=== PATIENT | female | born 1970 | race Caucasian/White ===

== ENCOUNTER 2022-02-15 18:14 | Inpatient (IN) | payer BC ==
[~2022-02-15] VITALS: Ht 157.5 cm; Wt 87.5 kg
[2022-02-15 18:28] VITALS: BP 135/67
--- NOTE | 2022-02-15 18:44 | NUR ---
PT AMB TO BED 9.
[2022-02-15] MEDS ORDERED: NACL 0.9% 1,000 ML IV ONE (19:55)
--- NOTE | 2022-02-15 20:00 | NUR ---
51 Y/O FEMALE BIBS FROM HOME, C/O FLANK PAIN X3 DAYS. PTHAS BEEN IN CONTACT WITH HER PCP AND IS ON ABX FOR HER S/S. PT IS COMPLAINING THAT HER SYMPTOMS ARE PERSISTING. PT IS COMPLAINING OF FEVERS ( HIGH 102 AT HOME), N/V/D, BODY ACHES, BRIGHT, DIAPHORESIS AND URINATING LESS. PT STATES SHE IS TAKING IBUPROFEN AND TYLENOL. HX: UTI NKA DENIES MEDS SX: HYSTERECTOMY
--- NOTE | 2022-02-15 20:03 | NUR ---
CARTON COUNTER FEEDER AT BEDSIDE
[2022-02-15 20:20] LABS: BASOPHILS # (AUTO) 0.1 K/uL (0.00-0.22); BASOPHILS % (AUTO) 0.9 % (0.0-2.0); EOSINOPHILS # (AUTO) 0.6 K/uL (0-0.4); EOSINOPHILS % (AUTO) 9.3 % (0.0-4.0); HEMATOCRIT 40.2 % (36-48); HEMOGLOBIN 13.6 g/dL (12.0-16.0); LYMPHOCYTES # (AUTO) 1.5 K/uL (2.5-16.5); LYMPHOCYTES % (AUTO) 25.1 % (20.5-51.1); MEAN CORPUSCULAR HEMOGLOBIN 29 pg (27-31); MEAN CORPUSCULAR HGB CONC 34 g/dL (33-37); MEAN CORPUSCULAR VOLUME 85.8 fL (80-94); MONOCYTES # (AUTO) 0.7 K/uL (0.8-1.0); NEUTROPHILS # (AUTO) 3.2 K/uL (1.8-7.7); NEUTROPHILS % (AUTO) 52.7 % (42.2-75.2); PLATELET COUNT (AUTO) 222 K/uL (140-450); RED BLOOD CELL COUNT(AUTO) 4.69 MIL/uL (4.20-5.40); RED CELL DISTRIBUTION WIDTH 13.8 % (11.6-13.7)
--- NOTE | 2022-02-15 20:28 | NUR ---
PT TO CT
[2022-02-15 20:34] LABS: ALBUMIN 3.3 g/dL (3.4-5.0); ANION GAP 14.3 (8-16); CARBON DIOXIDE 23.5 mmol/L (21-32); POTASSIUM 3.8 mmol/L (3.5-5.1)
--- NOTE | 2022-02-15 20:53 | NUR ---
WOOD HEEL CEMENTER AT BEDSIDE DRAWING BLOOD CULTURES
[2022-02-15] MEDS ORDERED: cefTRIAXone 1,000 MG VIAL ONE (20:56)
[2022-02-15 21:22] LABS: APPEARANCE,URINE CLEAR (CLEAR); COLOR,URINE ORANGE (YELLOW)
[2022-02-15 21:23] LABS: BILIRUBIN,URINE NEGATIVE (NEGATIVE); BLOOD, URINE NEGATIVE (NEGATIVE); LEUKOCYTE ESTERASE ,URINE NEGATIVE (NEGATIVE); NITRITE, URINE NEGATIVE (NEGATIVE); UGLUCOSE NEGATIVE (NEGATIVE)
--- NOTE | 2022-02-15 21:50 | NUR ---
COVID/ARDEN SWAB COLLECTED AND WALKED TO LAB
[2022-02-15] MEDS ORDERED: ONDANSETRON 4 MG/2 ML VIAL IVP PRN (23:25)
[2022-02-16] MEDS: MORPHINE SULFATE 2 MG/ML SYR IVP PRN ×3 (00:59→13:30)
[2022-02-16] MEDS: NACL 0.9% 1,000 ML IV SCH ×4 (01:00→23:50)
[2022-02-16 01:05] VITALS: BP 122/90
--- NOTE | 2022-02-16 01:05 | NUR ---
RECEIVED PT FROM ER ADMITTED TO [facility] VIA [facility] WITH CHIEF COMPLAINTS OF FLANK PAIN X 3 DAYS AND DIAGNOSIS OF PYELONEPHRITIS. PT IS ON STEADY GAIT AND TRANSFER TO BED INDEPENDENTLY. PT IS AWAKE, ALERT AND ORIENTED X 4. RESPIRATION EVEN AND REGULAR, NO SOB OR DISTRESS. BILATERAL LUNGS SOUND CLEAR. SALINE LOCK 20G INTACT AND PATENT. IS ON LEFT FOREARM INTACT AND PATENT. PT IS ON REGULAR DIET, A FULL CODE WITH NOT KNOWN ALLERGY. SKIN IS INTACT, NO SKIN OPENING OR BREAKDOWN. PT STATED OF TOLERABLE PAIN ON ABDOMINAL RADIATING TO THE BACK. ORIENT PATIENT TO THE ROOM AND GIVE INSTRUCTIONS ABOUT ROOM SURROUNDINGS, CONTROLLER & TELEPHONE USE, VISITING HOURS AND HOW TO CALL WHEN ASSISTANCE NEEDED.
--- NOTE | 2022-02-16 01:12 | NUR ---
Patient will be admitted to care of DR VALADEZ. Admited to TELE. Will go to room 105A. Belongings list completed. Report to NELIA ASHLEY.
[2022-02-16] MEDS: ACETAMINOPHEN 325 MG TAB PO PRN ×3 (02:27→14:45)
--- NOTE | 2022-02-16 02:27 | NUR ---
PT COMPLAINTS OF HEADACHE, TYLENOL ADMINISTERED ORDER.
[2022-02-16 04:00] VITALS: BP 119/88
--- NOTE | 2022-02-16 04:27 | NUR ---
PATIENT IS SLEEPING, NO NOTED FACIAL GRIMACING OR PAIN HELD.
[2022-02-16 07:17] LABS: ANION GAP 13.1 (8-16); CARBON DIOXIDE 23.4 mmol/L (21-32); CREATININE 0.9 mg/dL (0.6-1.3); POTASSIUM 3.5 mmol/L (3.5-5.1)
[2022-02-16 07:21] LABS: MAGNESIUM 1.8 mg/dL (1.8-2.4); PHOSPHORUS 2.5 mg/dL (2.5-4.9)
--- NOTE | 2022-02-16 07:25 | NUR ---
PT IS ON STABLE CONDITION, ALL SAFETY MEASURES IN PLACE. ENDORSED TO DAY SHIFT NURSE FOR CONTINUITY OF CARE.
[2022-02-16 07:26] LABS: HEMATOCRIT 38.2 % (36-48); HEMOGLOBIN 12.8 g/dL (12.0-16.0); MEAN CORPUSCULAR HEMOGLOBIN 29 pg (27-31); MEAN CORPUSCULAR HGB CONC 34 g/dL (33-37); MEAN CORPUSCULAR VOLUME 86.3 fL (80-94); PLATELET COUNT (AUTO) 201 K/uL (140-450); RED BLOOD CELL COUNT(AUTO) 4.42 MIL/uL (4.20-5.40); RED CELL DISTRIBUTION WIDTH 13.8 % (11.6-13.7); WHITE BLOOD COUNT (AUTO) 6.5 K/uL (4.8-10.8)
--- NOTE | 2022-02-16 07:26 | NUR ---
RECEIVED BEDSIDE REPORT FROM GIS PHYSICAL SCIENTIST FOR CONTINUOUS OF CARE, PT RESTING, NO DISTRESS NOTED, ALERT ORIENTED ABLE TO LET NEEDS KNOWN. IV TO LEFT FA 20G PATENT INTACT, INFUSING WELL. PT ON ROOM AIR, NO SOB NOTED. INITIAL ASSESSMENT DONE, ALL SAFETY PRECAUTION MET, CALL LIGHT WITHIN REACH, WILL CONTINUE TO MONITOR.
[2022-02-16 08:00] VITALS: BP 124/90
--- NOTE | 2022-02-16 08:21 | NUR ---
PT TEMP 100.4, PT HAVING CHILLS, TYLENOL GIVEN PER DR ORDER, PT TOLERATED WELL, WILL CONTINUE TO MONITOR.
[2022-02-16 08:47] LABS: EOSINOPHILS % (MANUAL) 8 % (0-4); LYMPHOCYTES % (MANUAL) 28 % (20-46); MONOCYTES % (MANUAL) 11 % (5-12)
--- NOTE | 2022-02-16 09:10 | NUR ---
PT C/O BACK PAIN, MEDICATION GIVEN PER DR ORDER, WILL CONTINUE TO MONITOR.
[2022-02-16 12:00] VITALS: BP 114/87
--- NOTE | 2022-02-16 14:45 | NUR ---
PT TEMPERATURE 102.2, TYLENOL GIVEN PER DR ORDER, WILL CONTINUE TO MONITOR.
--- NOTE | 2022-02-16 14:54 | NUR ---
PATIENT HAS BEEN SCREENED AND CATEGORIZED HIGH NUTRITION RISK. PATIENT WILL BE SEEN WITHIN 1-2 DAYS OF ADMISSION. REFERRAL RECEIVED FOR NAUSEA AND VOMITING OVER THREE DAYS [address]
--- NOTE | 2022-02-16 15:15 | NUR ---
DC PLANNING SW MET WITH PT AT BEDSIDE TO COMPLETE ASSESSMENT. PT REPORTS RESIDING W/ HER FAMILY AT THE ADDRESS LISTED. PT IDENTIFIES YARELI MATAMOROS () EMERGENCY CONTACT AND MDM. PT DENIED HAVING AD IN PLACE AND DECLINED AD OFFERED BY SW. PT REPORTS MEETING WITH PCP NEEDED; LAST VISIT 02/13/22. PT DENIES TAKING MEDICATION IT IS NOT NEEDED. PT DENIES BARRIERS IN ACCESSING MEDICATION AND REPORTS RECEIVING MEDICATION AT [facility] [address] IN [place]. PT REPORTS ADEQUATE FOOD SOURCE AND DENIES BARRIERS IN ACCESSING FOOD. PT IS INDEPENDENT IN ALL ACTIVITIES AND DENIES USE OF DME. PT DENIES MH/SA HX. PT DENIES HX OF HH . PATIENT REPORTS DC PLAN IS TO RETURN HOME WITH PROVIDING TRANSPORTATION AND AIDING IN CARE, IF REQUIRED. SW INQUIRED ADDITIONAL RESOURCES NEEDED, PATIENT DECLINED AT THIS TIME.
--- NOTE | 2022-02-16 15:29 | NUR ---
02/16/22 RD INITIAL ASSESSMENT COMPLETED PLEASE REFER TO NUTRITION ASSESSMENT UNDER CARE ACTIVITY FOR ESTIMATED NUTRITIONAL NEEDS. 1. CONTINUE REGULAR DIET TOLERATED 2. RECOMMEND ENSURE BID FOR NUTRITION SUPPORT 3. RD TO FOLLOW-UP 7 DAYS, LOW RISK OSMAN ART RD
[2022-02-16] MEDS ORDERED: MORPHINE SULFATE 2 MG/ML SYR IVP PRN (16:10)
[2022-02-16] MEDS ORDERED: IBUPROFEN 600 MG TAB ONE (16:20)
[2022-02-16] MEDS: IBUPROFEN 600 MG TAB PO PRN (16:24)
[2022-02-16] MEDS: PHENAZOPYRIDINE 100 MG TAB PO SCH (18:56)
--- NOTE | 2022-02-16 19:15 | NUR ---
ENDORSED PT TO MACHINE TOOL TECHNICIAN INSTRUCTOR NURSE FOR CONTINUOUS OF CARE.
--- NOTE | 2022-02-16 19:16 | NUR ---
RECEIVED ENDORSEMENT FROM DAY SHIFT NURSE FOR CONTINUITY OF CARE. PT IS AWAKE , ALERT AND RESPONSIVE VERBALLY. PT DOES NOT COMPLAINTS OF PAIN OR DISCOMFORT. ON BEDSIDE. SALINE LOCK IS INTACT AND PATENT. IV FLUID IS INFUSING WELL, NO NOTED ANY REDNESS/RASHES OR SWELLING ON IV SITE. SKIN INTACT, NO SKIN PROBLEM. CONTINUE TO MONITOR.
[2022-02-16 20:00] VITALS: BP 132/86
[2022-02-17] VITALS: BP 132/86
[2022-02-17] MEDS: NACL 0.9% 1,000 ML IV SCH (00:14)
[2022-02-17] MEDS: IBUPROFEN 600 MG TAB PO PRN ×2 (01:17→10:24)
--- NOTE | 2022-02-17 01:17 | NUR ---
PT COMPLAINS OF HEADACHE AND REQUESTED TO HAVE MOTRIN 600 MG ORDER, NOT TYLENOL. PER PT, MOTRIN MORE EFFECTIVE. ADMINISTERED MOTRIN PER ORDER.
--- NOTE | 2022-02-17 02:17 | NUR ---
PT IS SLEEPING. NO FACIAL GRIMACING.
[2022-02-17 04:00] VITALS: BP 156/98
--- NOTE | 2022-02-17 07:15 | NUR ---
PT IS ON STABLE CONDITION. ALL SAFETY MEASURES IN PLACE. ENDORSED TO DAY SHIFT NURSE FOR CONTINUITY OF CARE.
[2022-02-17 08:00] VITALS: BP 151/89
[2022-02-17] MEDS: PHENAZOPYRIDINE 100 MG TAB PO SCH ×2 (08:20→13:01)
[2022-02-17] MEDS ORDERED: IBUP-2213 PO (11:15)
[2022-02-17] MEDS ORDERED: CEFU500T73 PO (11:15)
[2022-02-17] MEDS ORDERED: PYR100 PO (11:15)
[2022-02-17 11:46] LABS: BASOPHILS # (AUTO) 0.1 K/uL (0.00-0.22); BASOPHILS % (AUTO) 0.9 % (0.0-2.0); EOSINOPHILS # (AUTO) 0.6 K/uL (0-0.4); HEMATOCRIT 38.2 % (36-48); HEMOGLOBIN 12.9 g/dL (12.0-16.0); LYMPHOCYTES # (AUTO) 2.3 K/uL (2.5-16.5); LYMPHOCYTES % (AUTO) 36.3 % (20.5-51.1); MEAN CORPUSCULAR HEMOGLOBIN 29 pg (27-31); MEAN CORPUSCULAR HGB CONC 34 g/dL (33-37); MEAN CORPUSCULAR VOLUME 86.3 fL (80-94); MONOCYTES # (AUTO) 0.6 K/uL (0.8-1.0); NEUTROPHILS # (AUTO) 2.7 K/uL (1.8-7.7); NEUTROPHILS % (AUTO) 42.8 % (42.2-75.2); PLATELET COUNT (AUTO) 194 K/uL (140-450); RED BLOOD CELL COUNT(AUTO) 4.43 MIL/uL (4.20-5.40); RED CELL DISTRIBUTION WIDTH 13.6 % (11.6-13.7); WHITE BLOOD COUNT (AUTO) 6.2 K/uL (4.8-10.8)
[2022-02-17 12:42] LABS: ANION GAP 9.9 (8-16); CARBON DIOXIDE 26.8 mmol/L (21-32); CREATININE 0.9 mg/dL (0.6-1.3); POTASSIUM 3.7 mmol/L (3.5-5.1)
== END 2022-02-17 16:20 | disposition home or self-care (01) | DRG 690 ==
LOC: MED 18:14 → OBSVTOIN 23:29 → MTU 23:29
PROVIDERS: ADMIT Internal Medicine; ATTEND Internal Medicine
DX: N10 Acute pyelonephritis (principal); K76.0 Fatty (change of) liver, not elsewhere classified; E66.9 Obesity, unspecified; Z20.822 Contact with and (suspected) exposure to COVID-19; Z68.35 Body mass index [BMI] 35.0-35.9, adult
CPT/HCPCS: 36415; 71045; 80048; 80053; 81003; 83735; 84100; 85025; 87040; 87081; 87086; 96365; 96375; 99285; J0696; J2270; J7060; Q0092